=== PATIENT | male | born 1950 | race Caucasian/White ===

== ENCOUNTER 2019-09-07 10:06 | Emergency (ER) | payer MEDICARE ==
[2019-09-07 10:24] VITALS: BP 187/100
[2019-09-07] MEDS ORDERED: Ketorolac INJ* 30 MG/ML 1 ML VIAL IM ONE (10:57)
--- NOTE | 2019-09-07 10:58 | UC ---
Hip/Pelvis Pain - HPI Summary HPI Summary: 69-year-old male who complains of left hip/sciatica pain over the past month. He denies any specific injury however after viewing past events he was lifting wood and piling it approximately one month ago and then he was doing some "froglike jumps" with his grandson and shortly after that he started having some left hip pain which shoots down his left leg. It has gradually worsened over the past month. He denies any other injury. Denies any saddle anesthesia and no numbness or tingling in his extremities. When he sits it feels better and he has been sleeping sitting up in a chair. - History Of Current Complaint Chief Complaint: UCBackPain Stated Complaint: PAIN DOWN LEG Time Seen by Provider: 09/07/19 10:36 Hx Obtained From: Patient Onset/Duration: Gradual Onset, Lasting Weeks Timing: Constant Severity Initially: Mild Severity Currently: Moderate Pain Intensity: 7 Character Of Pain: Sharp, Dull, Aching Aggravating Factor(s): Movement Alleviating Factor(s): Rest, Position, Other - When he is sitting the pain is improved. Associated Signs And Symptoms: Positive: Negative - Allergies/Home Medications Allergies/Adverse Reactions: Allergies Allergy/AdvReac Type Severity Reaction Status Date / Time No Known Allergies Allergy Verified 09/07/19 10:15 Home Medications: Home Medications Acetaminophen TAB* [Tylenol TAB*] 650 mg PO Q4H PRN 09/07/19 [History Confirmed 09/07/19] PMH/Surg Hx/FS Hx/Imm Hx Previously Healthy: Yes Cardiovascular History: Other - History of PVCs - Surgical History Surgical History: Yes Surgery Procedure, Year, and Place: vasectomy, hernia repair, RIGHT SHOULDER RTC - Family History Known Family History: Positive: Non-Contributory - Social History Occupation: Retired Lives: With Family Alcohol Use: Daily Alcohol Amount: 1 beer/ night Substance Use Type: None Smoking Status (MU): Never Smoked Tobacco Type: Cigarettes When Did the Patient Quit Smoking/Using Tobacco: 25 years Review of Systems All Other Systems Reviewed And Are Negative: Yes Motor: Positive: Negative Neurovascular: Positive: Negative Musculoskeletal: Positive: Other: - No decreased range of motion however he does have worsening left buttock pain which radiates down his leg over the past month. Neurological: Negative: Headache, Weakness, Paresthesia, Numbness Psychological: Positive: Negative Is Patient Immunocompromised?: No Physical Exam Triage Information Reviewed: Yes Appearance: Well-Appearing, No Pain Distress, Well-Nourished Vital Signs: Initial Vital Signs Temp 98.9 F 09/07/19 10:17 Pulse 75 09/07/19 10:17 Resp 20 09/07/19 10:17 BP 187/100 09/07/19 10:17 Pulse Ox 97 09/07/19 10:17 Vital Signs Reviewed: Yes Respiratory: Positive: Lungs clear, Normal breath sounds, No respiratory distress, No accessory muscle use Cardiovascular: Positive: RRR, No Murmur, Pulses Normal, Brisk Capillary Refill Abdomen Description: Positive: Nontender, No Organomegaly, Soft. Negative: CVA Tenderness (R), CVA Tenderness (L), Distended, Guarding, Hepatomegaly, McBurney' s Point Tenderness, Pulsatile Mass, Splenomegaly Musculoskeletal: Positive: Strength Intact, ROM Intact, Other: - Good peripheral pulses, neuro sensation and capillary refill. Reflexes +2 on the right knee +1 left knee. Minimally positive left straight leg raise. Tenderness on palpation left buttock. Spine and right buttock nontender Neurological Exam: Normal Psychological Exam: Normal Skin Exam: Normal Hip Injury Course/Dx - Course Course Of Treatment: Left hip and pelvis x-ray:FINDINGS: The bones are in normal alignment. No fracture is seen. There is mild bilateral osteoarthritic change in the hips. There is also mild bilateral sacroiliitis. Postsurgical changes project over the inguinal regions and overlying the pelvis on the right side. IMPRESSION: 1. MILD BILATERAL OSTEOARTHRITIC CHANGE IN THE HIPS. 2. MILD BILATERAL SACROILIITIS. The patient was given Toradol 30 mg IM, I'm also giving him a prescription for Flexeril as well as Motrin. He is to avoid movements that cause pain. Definite referral to Dr. Cano for further back care. - Differential Dx/Diagnosis Provider Diagnosis: Left sided sciatica Discharge ED - Sign-Out/Discharge Documenting (check all that apply): Patient Departure All imaging exams completed and their final reports reviewed: Yes - Discharge Plan Condition: Fair Disposition: HOME Prescriptions: Cyclobenzaprine TAB* [Flexeril 10 MG TAB*] 10 mg PO TID PRN #15 tab PRN Reason: Pain - Mild Ibuprofen TAB* [Motrin TAB* 600 MG] 600 mg PO Q8H PRN #20 tab PRN Reason: Pain - Mild Patient Education Materials: Sciatica (ED) Referrals: Haim Olguin MD [Primary Care Provider] - Williams Cano MD [Medical Doctor] - Additional Instructions: Avoid movements that cause pain. No driving, operating machinery or drink alcohol while you're taking the muscle relaxant. Take the Motrin with food. Definite follow up with either your primary care provider or Dr. Cano for further care and evaluation. Go to the emergency room if you have any numbness in your legs, numbness in your groin area, urinary or bowel incontinence. - Billing Disposition and Condition Condition: FAIR Disposition: Home - Attestation Statements Provider Attestation: Per institutional requirements, I have reviewed the chart, however, I was not consulted specifically or made aware of this patient by the midlevel provider. I did not personally evaluate, interact with , or disposition this patient.
== END 2019-09-07 11:50 | disposition home or self-care (01) ==
LOC: UCEAST 10:06
DX: M54.32 Sciatica, left side (principal); M16.0 Bilateral primary osteoarthritis of hip; M46.1 Sacroiliitis, not elsewhere classified
CPT/HCPCS: 96372; 99212; G0463; J1885

== ENCOUNTER 2019-11-21 20:29 | Emergency (ER) | payer MEDICARE ==
--- NOTE | 2019-11-21 22:55 | ED ---
Back Pain - HPI Summary HPI Summary: This pt is a 69 Y/O M presenting to [facility] accompanied by his with a CC of low back pain that is radiated a 9/10 in severity and has been present since July 2019. He states that the pain has been worsening this past week and radiates down his legs, primarily on the L side. He states that he has decreased gait balance. He states that the pain has begun to radiate up into his chest about a month ago. The pain has also moved to in-between his shoulder blades. He has numbness and tingling in his bilateral lower extremities. He states that he has been unable to sleep in a bed due to the pain and SOB. He states that he has had this pain before but was feeling improvements. He has recently participated in psychical therapy that has been unhelpful. He states that he saw a chiropractor before this pain occurred. He states that he has increased pain with movements and resting for over 45 minutes. He denies any fevers, headaches, and N/V. He states that he has a PMHx of HTN and PVCs. - History of Current Complaint Chief Complaint: EDBackInjuryPain Stated Complaint: BACK PAIN PER PT Time Seen by Provider: 11/21/19 22:42 Hx Obtained From: Patient Onset/Duration: Sudden Onset, Still Present, Worse Since - last week, Other - since July 2019 Onset/Duration: Started Weeks Ago, Still Present, Worse Since - last week Timing: Constant Back Pain Location: Is Discrete @ - middle of back, inbetween shoulder blades Severity Initially: Moderate Severity Currently: Severe - 9 Pain Intensity: 9 Pain Scale Used: 0-10 Numeric Aggravating Symptom(s): Movement, Other - resting for 45 minutes Alleviating Symptom(s): Nothing Associated Signs And Symptoms: Positive: Negative - fevers, headaches, N/V, Weakness - bilateral lower extremities, Numbness - bilateral lower extremities, Other - POSITIVE: SOB, bilateral lower extremity pain, chest pain. Negative: Fever Related History: Previous Back Injury - states back injury and pain since July 2019 - Allergies/Home Medications Allergies/Adverse Reactions: Allergies Allergy/AdvReac Type Severity Reaction Status Date / Time No Known Allergies Allergy Verified 11/21/19 20:33 Home Medications: Home Medications Gabapentin 300 mg PO TID PRN 11/21/19 [History Confirmed 11/21/19] Methylprednisolone 4 mg PO DAILY 11/21/19 [History Confirmed 11/21/19] traMADol TAB* 50 mg PO Q6HR PRN 11/21/19 [History Confirmed 11/21/19] PMH/Surg Hx/FS Hx/Imm Hx Previously Healthy: Yes Endocrine/Hematology History: Denies: Hx Diabetes, Hx Thyroid Disease Cardiovascular History: Reports: Hx Hypertension Denies: Hx Pacemaker/ICD Respiratory History: Denies: Hx Asthma, Hx Chronic Obstructive Pulmonary Disease (COPD) GI History: Denies: Hx Ulcer History: Denies: Hx Renal Disease Musculoskeletal History: Denies: Hx Rheumatoid Arthritis, Hx Osteoporosis Sensory History: Denies: Hx Hearing Aid Psychiatric History: Denies: Hx Panic Disorder - Cancer History Hx Chemotherapy: No Hx Radiation Therapy: No - Surgical History Surgical History: Yes Surgery Procedure, Year, and Place: vasectomy, hernia repair, RIGHT SHOULDER RTC - Immunization History Immunizations Up to Date: Yes Infectious Disease History: No Infectious Disease History: Denies: Hx Hepatitis, Hx Human Immunodeficiency Virus (HIV), History Other Infectious Disease, Traveled Outside the [place] in Last 30 Days - Family History Known Family History: Negative: Hypertension, Diabetes - Social History Occupation: Retired Lives: With Family Alcohol Use: Daily Alcohol Amount: 1 beer/ night Hx Substance Use: Yes Substance Use Type: Reports: None Hx Tobacco Use: Yes Smoking Status (MU): Former Smoker Type: Cigarettes Review of Systems Negative: Fever Positive: Chest Pain Positive: Shortness Of Breath Negative: Vomiting, Nausea Positive: Other - back pain and lower extremity pain Neurological: Other - POSITIVE: bilateral lower extremitiy tingling Positive: Weakness - bilateral lower extremitiy . Negative: Headache All Other Systems Reviewed And Are Negative: Yes Physical Exam - Summary Physical Exam Summary: Appearance: Well-appearing, Well-nourished, lying in bed comfortably Skin: Warm, dry, no obvious rash Eyes: sclera anicteric, no conjunctival pallor ENT: mucous membranes moist, pharynx appears normal Neck: Supple, nontender, no bruits Respiratory: Clear to auscultation, no signs of respiratory distress Cardiovascular: Normal S1, S2. No murmurs. Normal distal pulses in tibial and radial bilaterally. Abdomen: Soft, nontender, normal active bowel sounds present Musculoskeletal: Normal, Strength/ROM Intact. No obvious deformities of back Neurological: A&Ox3, awake and alert, mentation is normal, speech is fluent and appropriate, Subjective decrease of light touch in feet, no clonus or hyperreflexia, No Bulbar signs, no fine motor ataxia, normal finger to nose and beckett testing, unstable on feet to the point a Romberg is not obtainable. Psychiatric: affect is normal, does not appear anxious or depressed Triage Information Reviewed: Yes Vital Signs On Initial Exam: Initial Vitals Temp Pulse Resp BP Pulse Ox 97.5 F 92 15 186/106 95 11/21/19 20:31 11/21/19 20:31 11/21/19 20:31 11/21/19 20:31 11/21/19 20:31 Vital Signs Reviewed: Yes Procedures - Sedation Patient Received Moderate/Deep Sedation with Procedure: No Diagnostics - Vital Signs Vital Signs Temp Pulse Resp BP Pulse Ox 11/21/19 20:31 97.5 F 92 15 186/106 95 - Laboratory Result Diagrams: 11/21/19 23:08 11/21/19 23:08 Lab Statement: Any lab studies that have been ordered have been reviewed, and results considered in the medical decision making process. - CT CTA chest CT Interpretation Completed By: Radiologist Summary of CT Findings: 1. Small volume pulmonary emboli left upper lobe. No right heart strain. 2. 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 No aortic dissection. 3. 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 4. Bosniak type I renal cysts. No follow up indicated. ED physician has reviewed this report. Head CTA CT Interpretation Completed By: Radiologist Summary of CT Findings: Mildly atherosclerotic and minimally stenotic right internal carotid artery. Otherwise normal head CTA. ED physician has reviewed this report. - EKG 2322 Cardiac Rate: NL - 76 BPM EKG Rhythm: Sinus Rhythm ST Segment: Normal Ectopy: None Summary of EKG Findings: NSR at 76 BPM, P waves, QRS complex, and T waves are within normal limits, T waves and intervals are normal, no ischemic changes. This is a normal EKG. Interpreted by Dr. Murray at 8460 11/21/2019 Back Pain Course/Dx - Course Course Of Treatment: This pt is a 69 Y/O M presenting to [facility] accompanied by his with a CC of low back pain that is radiated a 9/10 in severity and has been present since July 2019. He states that the pain has been worsening this past week and radiates down his legs, primarily on the L side. He states that he has decreased gait balance. He states that the pain has begun to radiate up into his chest about a month ago. The pain has also moved to in- between his shoulder blades. He has numbness and tingling in his bilateral lower extremities. He has a PMHx of HTN and occasional PVCs. His PE found Subjective decrease of light touch in feet, no clonus or hyperreflexia, No Bulbar signs, no fine motor ataxia, normal finger to nose and beckett testing, unstable on feet to the point a Romberg is not obtainable. He has no bruits noted and no obvious deformities of his back. EKG at 2322 shows NSR at 76 BPM, P waves, QRS complex, and T waves are within normal limits, T waves and intervals are normal, no ischemic changes. This is a normal EKG. His D-Dimer is a 497 and he will receive a chest CTA. His CTA Chest shows the followin. Small volume pulmonary emboli left upper lobe. No right heart strain. 2. 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 No aortic dissection. 3. 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 4. Bosniak type I renal cysts. No follow up indicated. His Head CTA shows the following: Mildly atherosclerotic and minimally stenotic right internal carotid artery. Otherwise normal head CTA. He will be admitted for further care by Dr. Qureshi, hospitalist, at 0054 to [facility] for further care with a Dx of a Pulmonary embolism and Thoracic spine tumor. On evaluation by the hospitalist, the patient was noted to have decreased sensation in the legs and abnormal reflexes, and there was a suspicion for cord compression. MRI obtained emergently overnight confirmed the clinical suspicion. Neurosurgery was consulted but it was felt the patient was too medically complex to be treated surgically here, so hospitalist team arranged transfer to a tertiary care facility. - Diagnoses Provider Diagnoses: Pulmonary embolism, Thoracic spine tumor - Provider Notifications Discussed Care Of Patient With: Nereyda Qureshi Time Discussed With Above Provider: 00:54 Instructed by Provider To: Admit As Inpatient Admit/Transition Orders Completed By ED Provider: Yes Discharge ED - Sign-Out/Discharge Documenting (check all that apply): Patient Departure - Discharge Plan Condition: Stable Disposition: TRANS HIGHER LVL OF CARE FAC Referrals: Haim Olguin MD [Primary Care Provider] - - Billing Disposition and Condition Condition: STABLE Disposition: Trans Higher Lvl of Care Fac - Attestation Statements Document Initiated by Bello: Yes Documenting Scribe: Luis Angel Grimaldo Provider For Whom Bello is Documenting (Include Credential): Luis Murray MD Scribe Attestation: Luis Angel Steen, hildaibed for Luis Murray MD on 11/23/19 at 0529. Scribe Documentation Reviewed: Yes Provider Attestation: The documentation as recorded by the Luis Angel cedeno accurately reflects the service I personally performed and the decisions made by me, Luis Murray MD Status of Scribe Document: Viewed
[2019-11-21 23:19] LABS: ABS Eosinophils 0.1 10^3/ul (0-0.6); ABS Lymphocytes 1.3 10^3/ul (1.0-4.8); ABS Monocytes 0.6 10^3/ul (0-0.8); ABS Neutrophils 7.4 10^3/ul (1.5-7.7); Eosinophil % 0.6 %; Hematocrit 40 % (42-52); Hemoglobin 13.3 g/dL (14.0-18.0); Lymphocyte % 13.5 %; Mean Corpuscular HGB Conc 33 g/dL (31-36); Mean Corpuscular Hemoglobin 31 pg (27-31); Mean Corpuscular Volume 94 fL (80-94); Mean Platelet Volume 8.4 fL (7.4-10.4); Nucleated Red Blood Cells % 0.1; Platelet Count 257 10^3/uL (150-450); Red Blood Count 4.25 10^6 /uL (4.18-5.48); Red Cell Distribution Width 15 % (10-15); White Blood Count 9.5 10^3/uL (3.5-10.8)
[2019-11-21 23:36] LABS: ALT 26 U/L (7-52); AST 20 U/L (13-39); Albumin 4.3 g/dL (3.2-5.2); Albumin/Globulin Ratio 1.3 (1-3); Alkaline Phosphatase 98 U/L (34-104); Anion Gap 7 mmol/L (2-11); BUN/Creatinine Ratio 23.2 (8-20); Blood Urea Nitrogen 19 mg/dL (6-24); C Reactive Protein < 1.00 mg/L (<8.01); CO2 Carbon Dioxide 27 mmol/L (22-32); Calcium 9.7 mg/dL (8.6-10.3); Chloride 101 mmol/L (101-111); EGFR African American 112.7 (>60); EGFR Non-African American 93.2 (>60); Globulin 3.3 g/dL (2-4); Glucose 124 mg/dL (70-100); Sodium 135 mmol/L (135-145); Total Protein 7.6 g/dL (6.4-8.9)
[2019-11-21 23:38] LABS: Troponin I 0.02 ng/mL (<0.03)
[2019-11-21] MEDS ORDERED: Iohexol 350* (CONTRAST) 500 ML MDV IV ONE (23:44)
[2019-11-22 00:53] LABS: Erythrocyte Sed Rate 52 mm/Hr (0-19)
[2019-11-22] MEDS ORDERED: oxyCODONE TAB* 5 MG TAB PO ONE (00:58)
[2019-11-22] MEDS ORDERED: oxyCODONE TAB* 5 MG TAB PO PRN (02:07)
[2019-11-22] MEDS ORDERED: Morphine INJ* 4 MG/ML 1 ML SYRINGE (NEW SYRINGE VERSION) IV PRN (02:07)
[2019-11-22] MEDS ORDERED: Diazepam TAB(*) 5 MG PO PRN (02:07)
[2019-11-22] MEDS ORDERED: Acetaminophen TAB* 325 MG PO PRN (02:12)
[2019-11-22] MEDS ORDERED: Ondansetron INJ* 2 MG/ML VIAL IV PRN (02:19)
[2019-11-22] MEDS ORDERED: Ropinirole TAB* 0.5 MG TAB PO ONE (02:20)
[2019-11-22] MEDS ORDERED: hydrALAZINE IV* 20 MG/ML VIAL IV SLOW PU PRN (02:22)
[2019-11-22 02:46] LABS: % Iron Saturation 11 % (15-55); Iron 49 ug/dL (50-212); Total Iron Binding Capacity 461 mcg/dL (250-450); Transferrin 329 mg/dL (203-362)
[2019-11-22] MEDS ORDERED: Enoxaparin(*) 80 MG/0.8 ML SYR SUBCUT SCH ×2 (03:00)
[2019-11-22 03:07] LABS: Ferritin 11.5 ng/mL (24-336)
[2019-11-22] MEDS ORDERED: Gadoteridol* (CONTRAST) 279.3 MG/ML 10 ML IV ONE (05:42)
[2019-11-22] MEDS ORDERED: Dexamethasone IV* 4 MG/ML 1 ML (4 MG) PO ONE (06:47)
--- NOTE | 2019-11-22 08:05 | PN ---
Progress Note - Progress Note Date of Service: 11/22/19 Note: I just spoke to Dr. Morejon who believes the patient will need surgery in the next 2-3 days but he does not think this is the correct place to operate. I spoke with neurosurgery at [facility] who did not want to accept the patient now as they felt the patient needs a metastatic work up first. For the PE, Dr. Morejon has recommended IVC filter as opposed to heparin drip due to him having epidural disease.
--- NOTE | 2019-11-22 08:37 | PN ---
Subjective - Subjective Reason for Note: Progress Note History: Transfer summary derrick Medina 69 I have obtained a history from Derrick and Ester Medina. I have also reviewed the electronic medical record. He had an episode of left sided sciatica starting in July 2019. This was resolving. He developed thoracic pain and called me on 11/16/2019 - this was musculo- skeletal and had started around 5 days before. I prescribed a medrol dosage jennifer and cyclobenzaprine. This worsened when he had chiropractice manipulation. 2 days ago he started having numbness on abdomen that descended into his legs. He also developed progressive weakness in his legs. He has had 2 day with difficulty urinating. He has had no bowel symptoms. The pain is in his lower back, across chest and in shoulders. 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 (Acute) C79.51 Pathological fracture of lumbar vertebra (Acute) M84.48XA Pathological fracture of thoracic vertebra (Acute) M84.48XA Pulmonary embolism (Acute) I26.99 Urinary retention (Acute) R33.9 Current Medications: Current Medications Acetaminophen (Tylenol Tab*) 650 mg PO Q4H PRN PRN Reason: MILD PAIN or TEMP > 100.4 Diazepam (Valium Tab(*)) 2.5 mg PO Q8H PRN PRN Reason: spasms Gabapentin (Neurontin Cap(*)) 300 mg PO TID ERICK Hydralazine HCl (Apresoline Iv*) 5 mg IV SLOW PU Q6H PRN PRN Reason: SBP> 170 Morphine Sulfate (Morphine Inj (Syringe)*) 4 mg IV Q4H PRN PRN Reason: PAIN - SEVERE Ondansetron HCl (Zofran Inj*) 4 mg IV Q6H PRN PRN Reason: NAUSEA Oxycodone HCl (Roxycodone Tab*) 5 mg PO Q4H PRN PRN Reason: PAIN - MODERATE Ropinirole HCl (Requip Tab*) 0.5 mg PO BEDTIME ERICK Home Medications: Home Medications Medication Instructions Recorded Confirmed Type Acetaminophen TAB* [Tylenol TAB*] 650 mg PO Q4H PRN 09/07/19 11/21/19 History Ibuprofen TAB* [Motrin TAB* 600 MG] 600 mg PO Q8H PRN #20 tab 09/07/19 11/21/19 Rx Gabapentin 300 mg PO TID PRN 11/21/19 11/21/19 History Methylprednisolone 4 mg PO DAILY 11/21/19 11/21/19 History traMADol TAB* 50 mg PO Q6HR PRN 11/21/19 11/21/19 History Allergies: Allergies Allergy/AdvReac Type Severity Reaction Status Date / Time No Known Allergies Allergy Verified 11/21/19 20:33 Objective - Vital Signs Vital Signs: Vital Signs 11/21/19 11/21/19 11/21/19 20:31 22:34 22:35 Temperature 97.5 F Pulse Rate 92 75 76 Respiratory 15 Rate Blood Pressure 186/106 202/110 (mmHg) O2 Sat by Pulse 95 93 94 Oximetry 11/21/19 11/21/19 11/21/19 23:28 23:32 23:34 Temperature Pulse Rate 87 88 87 Respiratory 17 18 Rate Blood Pressure 188/116 182/97 (mmHg) O2 Sat by Pulse 94 93 94 Oximetry 11/22/19 11/22/19 11/22/19 00:05 00:06 00:34 Temperature Pulse Rate 84 86 96 Respiratory 14 19 20 Rate Blood Pressure 191/119 184/111 (mmHg) O2 Sat by Pulse 90 90 94 Oximetry 11/22/19 11/22/19 11/22/19 01:00 01:05 01:48 Temperature Pulse Rate 89 92 Respiratory 17 18 Rate Blood Pressure 187/114 168/120 (mmHg) O2 Sat by Pulse 94 95 Oximetry 11/22/19 11/22/19 11/22/19 01:55 02:04 02:06 Temperature Pulse Rate 90 90 Respiratory Rate Blood Pressure 176/110 153/101 (mmHg) O2 Sat by Pulse 92 95 Oximetry 11/22/19 11/22/19 11/22/19 02:35 03:04 03:17 Temperature Pulse Rate 87 Respiratory Rate Blood Pressure 170/103 161/104 (mmHg) O2 Sat by Pulse 94 Oximetry 11/22/19 11/22/19 11/22/19 03:34 04:00 04:04 Temperature Pulse Rate 97 Respiratory 22 21 19 Rate Blood Pressure 152/114 150/107 (mmHg) O2 Sat by Pulse 94 Oximetry 11/22/19 11/22/19 11/22/19 05:52 06:00 06:04 Temperature Pulse Rate 97 89 96 Respiratory 13 20 Rate Blood Pressure 132/90 162/105 (mmHg) O2 Sat by Pulse 84 93 93 Oximetry 11/22/19 11/22/19 11/22/19 07:00 07:04 07:05 Temperature Pulse Rate 107 108 104 Respiratory 22 33 17 Rate Blood Pressure 159/107 145/99 (mmHg) O2 Sat by Pulse 96 96 96 Oximetry 11/22/19 11/22/19 11/22/19 07:35 08:00 08:05 Temperature Pulse Rate 104 Respiratory 23 26 29 Rate Blood Pressure 166/94 157/83 (mmHg) O2 Sat by Pulse 95 Oximetry - Intake and Output Intake and Output: Intake & Output 11/19/19 11/20/19 11/21/19 11/22/19 11:59 11:59 11:59 11:59 Weight 175 lb ADLs: Meal Record Start: 11/22/19 03: 49 Freq: DAILY@0900,1400,1800 Status: Active Protocol: Created 11/22/19 03:49 System (Rec: 11/22/19 03:49 System [email or web address]) Intake and Output Start: 11/21/19 20: 34 Freq: Status: Active Protocol: Created 11/21/19 20:34 System (Rec: 11/21/19 20:34 System [id number]) Intake and Output Start: 11/22/19 03: 49 Freq: DAILY@0600,1400,2200 Status: Active Protocol: Created 11/22/19 03:49 System (Rec: 11/22/19 03:49 System [email or web address]) - Physical Exam General Physical Exam Comment: He has a tachycardia and is dyspneic. For detailed evaluation of neurological function - see Dr. Steiner's contemperaneous neurological consultation. General: No Cyanosis, No Anemia, No Jaundice, No Clubbing Lungs and Chest: Yes: Chest Expansion Symetrica, Percussion Note Resonant, Vessicular Breath Sounds. No: Chest Expansion Full - limited by pain, Crackles , Wheezes Heart Rate and Rhythm: Regular JVP: Elevated Additional Cardiovascular: Yes: Normal Heart Sounds. No: Heart Murmur, Pedal Edema Abdominal Exam: Yes: Distention, Soft, Bowel Sounds Present. No: Rigidity, Abdominal Mass, Abdominal Tenderness - Extremities Cranial Nerves II-XII Intact: Yes Limbs: Abnormal Power - legs 3+ - Neuro Orientation: A/O x3 Psychiatric: Anxious Speech: Normal Results - Results Lab Results: Laboratory Results - last 24 hr 11/21/19 11/21/19 11/21/19 23:08 23:08 23:08 WBC 9.5 RBC 4.25 Hgb 13.3 L Hct 40 L MCV 94 MCH 31 MCHC 33 RDW 15 Plt Count 257 MPV 8.4 Neut % (Auto) 78.7 Lymph % (Auto) 13.5 [place]uba % (Auto) 6.7 Eos % (Auto) 0.6 Baso % (Auto) 0.5 Absolute Neuts (auto) 7.4 Absolute Lymphs (auto) 1.3 Absolute Monos (auto) 0.6 Absolute Eos (auto) 0.1 Absolute Basos (auto) 0.0 Absolute Nucleated RBC 0.0 Nucleated RBC % 0.1 ESR 52 H D-Dimer, Quantitative Sodium 135 Potassium 4.0 Chloride 101 Carbon Dioxide 27 Anion Gap 7 BUN 19 Creatinine 0.82 Est GFR ( Amer) 112.7 Est GFR (Non-Af Amer) 93.2 BUN/Creatinine Ratio 23.2 H Glucose 124 H Lactic Acid 1.1 Calcium 9.7 Iron 49 L TIBC 461 H % Saturation 11 L Unsat Iron Binding < 446 Transferrin 329 Ferritin 11.5 L Total Bilirubin 0.40 AST 20 ALT 26 Alkaline Phosphatase 98 Troponin I 0.02 C-Reactive Protein < 1.00 Total Protein 7.6 Albumin 4.3 Globulin 3.3 Albumin/Globulin Ratio 1.3 Vitamin B12 236 11/21/19 11/22/19 23:08 06:38 WBC RBC Hgb Hct MCV MCH MCHC RDW Plt Count MPV Neut % (Auto) Lymph % (Auto) Yuba % (Auto) Eos % (Auto) Baso % (Auto) Absolute Neuts (auto) Absolute Lymphs (auto) Absolute Monos (auto) Absolute Eos (auto) Absolute Basos (auto) Absolute Nucleated RBC Nucleated RBC % ESR D-Dimer, Quantitative 497 H Sodium Potassium Chloride Carbon Dioxide Anion Gap BUN Creatinine Est GFR ( Amer) Est GFR (Non-Af Amer) BUN/Creatinine Ratio Glucose Lactic Acid Calcium Iron TIBC % Saturation Unsat Iron Binding Transferrin Ferritin Total Bilirubin AST ALT Alkaline Phosphatase Troponin I 0.01 C-Reactive Protein Total Protein Albumin Globulin Albumin/Globulin Ratio Vitamin B12 Radiology Results: Patient Name: DERRICK MEDINA Medical Record#: [id number] Ordering Physician: Derrick Murray MD Acct.#: [id number] : 1950 Age: 69 Sex: M Location: EMERGENCY DEPARTMENT Exam Date: 11/21/192256 ADM Status: REG ER Order Information: CTA CHEST Accession Number: [id number] CPT: 84810 ADDENDUM Addendum created by Perla Agee MD on 11/22/2019 12:48:44 AM EST THIS REPORT CONTAINS FINDINGS THAT MAY BE CRITICAL TO PATIENT CARE. The findings were verbally communicated via telephone conference with DERRICK MURRAY at 12:47 AM EST on 11/22/2019. The findings were acknowledged and understood. Initial report created on 11/22/2019 12:45:54 AM EST PROCEDURE INFORMATION: Exam: CT Angiography Chest With Contrast Exam date and time: 11/22/2019 12:00 AM Age: 69 years old Clinical indication: Chest pain; Additional info: Chest/thoracic pain, ? dissection TECHNIQUE: Imaging protocol: Computed tomographic angiography of the chest with intravenous contrast. 3D rendering: MIP and/or 3D reconstructed images were created by the technologist. Radiation optimization: All CT scans at this facility use at least one of these dose optimization techniques: automated exposure control; mA and/or kV adjustment per patient size (includes targeted exams where dose is matched to clinical indication); or iterative reconstruction. Contrast material: OMNI 350; Contrast volume: 80 ml; Contrast route: IV; COMPARISON: No relevant prior studies available. FINDINGS: Pulmonary arteries: Pulmonary arteries are well-opacified to the subsegmental branches. Acute filling defects segmental and subsegmental branches anterior segment left upper lobe (series 2, image 51). No additional pulmonary artery filling defects. Main pulmonary artery is normal in caliber. Aorta: Ectatic ascending thoracic aorta measuring up to 4.2 cm. No stranding or hematoma.The aorta demonstrates mild atherosclerotic calcification. No dissection or aneurysm. Thyroid: No thyroid nodules. Lungs: Subsegmental atelectasis posterior basal segments bilateral lower lobes. No pulmonary nodules, masses, or consolidations. No bronchiectasis, peribronchial thickening, or luminal defects. Pleural space: Normal. No pneumothorax. No pleural effusion. Heart: RV/LV = 0.8 (nl <0.9). No pericardial effusion. There is mild atherosclerotic calcification of the coronary arteries. Liver: Multiple fluid attenuating hepatic foci largest in segment II measures 1.6 cm. Kidneys and ureters: Fluid attenuating left renal foci largest which is This report is only to be considered final once signed by the Provider(s) as displayed in the "<Electronically Signed by >" field (s). Absence of a [facility] Patient Name:DERRICK MEDINA MR: [id number] : 1950 pericolic measuring 4.3 cm. Lymph nodes: Normal. No enlarged lymph nodes. Bones/joints: Several scattered lytic lesions within the upper thoracic spine including vertebral plana of the T2 vertebral body. No additional pathologic fractures. Soft tissues: Normal. IMPRESSION: 1. Small volume pulmonary emboli left upper lobe. No right heart strain. 2. 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 No aortic dissection. 3. 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 4. Bosniak type I renal cysts. No followup indicated. Dictated and Authenticated by: Perla Agee MD 11/22/2019 12:48 AM Eastern Time ([place] and Unique) Patient Name: DERRICK MEDINA Medical Record#: [id number] Ordering Physician: Derrick Murray MD Acct.#: [id number] : 1950 Age: 69 Sex: M Location: EMERGENCY DEPARTMENT Exam Date: 11/21/192256 ADM Status: REG ER Order Information: CTA HEAD/NECK Accession Number: [id number] CPT: 85584 PROCEDURE INFORMATION: Exam: CT Angiography Head With Contrast Exam date and time: 11/21/2019 11:53 PM Age: 69 years old Clinical indication: Other: Back and neck pain; Additional info: Back/neck pain, ataxia, ? dissection TECHNIQUE: Imaging protocol: Computed tomography angiography of the head with intravenous contrast. 3D rendering: MIP and/or 3D reconstructed images were created by the technologist. Radiation optimization: All CT scans at this facility use at least one of these dose optimization techniques: automated exposure control; mA and/or kV adjustment per patient size (includes targeted exams where dose is matched to clinical indication); or iterative reconstruction. Contrast material: OMNI 350; Contrast volume: 85 ml; Contrast route: IV; COMPARISON: No relevant prior studies available. FINDINGS: Right internal carotid artery: Mildly atherosclerotic right internal carotid artery in the cavernous segment causing minimal stenosis. No dissection or aneurysm. Right anterior cerebral artery: Normal. No occlusion or stenosis. No aneurysm. Right middle cerebral artery: Normal. No occlusion or stenosis. No aneurysm. Right posterior cerebral artery: Normal. No occlusion or stenosis. No aneurysm. Right vertebral artery: Normal. No occlusion or stenosis. No aneurysm. Left internal carotid artery: Normal. Intracranial segment is patent with no stenosis. No aneurysm. Left anterior cerebral artery: Normal. No occlusion or stenosis. No aneurysm. Left middle cerebral artery: Normal. No occlusion or stenosis. No aneurysm. Left posterior cerebral artery: Normal. No occlusion or stenosis. No aneurysm. Left vertebral artery: Normal. No occlusion or stenosis. No aneurysm. Basilar artery: Normal. No occlusion or stenosis. No aneurysm. HEAD: Brain: No abnormal brain enhancement. IMPRESSION: Mildly atherosclerotic and minimally stenotic right internal carotid artery. Otherwise normal head CTA. COMMENT: See concurrently obtained neck CTA for further details. [facility] Patient Name:DERRICK MEDINA MR: [id number] : 1950 To contact [facility] with a general question: [facility] - [phone] For direct physician to physician contact: Physician Hotline - [phone] [facility] ([facility] Facility ID #[id number]) <Electronically signed by Perla Agee MD in OV> 11/22/19 0059 Dictated By: Perla Agee MD Dictated Date/Time: 11/21/192352 Transcribed Date/Time: 11/21/192352 Copy to: CC:Haim Olguin MD; Derrick Murray MD Imaging - [facility] Imaging - [place] [facility] Imaging - [facility] [address] [address] ph ([phone]) ph ([phone]) ph ([phone]) Patient Name: DERRICK MEDINA Medical Record#: [id number] Ordering Physician: Aston Amato DETAIL SERGEANT Acct.#: [id number] : 1950 Age: 69 Sex: M Location: [address] [place] [address] MEDICAL/TELEMETRY Exam Date: 11/22/19301 ADM Status: ADM Gwendolyn Order Information: MRI LUMBAR SPINE W/WO Accession Number: [id number] CPT: 13423 PROCEDURE INFORMATION: Exam: MR Lumbar Spine Without and With Contrast. Exam date and time: 11/22/2019 4:41 AM Age: 69 years old Clinical indication: Pain and abnormal findings; Abnormal xray or scan of thoracolumbar spine; [place] and low back pain and sciatica; Patient HX: Back pain, leg pain, progressively worsening leg weakness over last 2 days; Additional info: Back pain weakness, TECHNIQUE: Imaging protocol: Multiplanar magnetic resonance images of the lumbar spine without and with intravenous contrast. Contrast material: PROHANCE; Contrast volume: 16 ml; Contrast route: IV; COMPARISON: No relevant prior studies available. FINDINGS: Vertebrae: Tumor infiltration with pathologic compression fracture of L4. Tumor extends to the left L4 pedicle. Metastatic lesion along the right aspect of L5 vertebra extending to the right pedicle. Metastatic lesion involving left aspect of S1 vertebral body. Spinal cord: Conus at L1. L1-L2: Disc desiccation changes. No significant spinal canal stenosis. No neural foraminal stenosis. L2-L3: Disc desiccation changes with a left paracentral disc bulge. No significant spinal canal stenosis. Mild left neural foraminal stenosis. Six L3-L4: Stenosis of the left L3-L4 neural foramen L4-L5: Disc desiccation changes. There is severe stenosis of the spinal canal with clumping of the cauda equina due to retropulsion of the fracture fragment and direct tumor extension at L4. Stenosis of the bilateral L4-L5 neural foramina. L5-S1: Disc desiccation changes. Loss of intervertebral disc height. Stenosis of the spinal canal due to tumor extension along the epidural space. Bilateral neural foraminal stenosis. Soft tissues: Left renal cysts. IMPRESSION: 1. Tumor infiltration with pathologic compression fracture of L4. Tumor extends to the left L4 pedicle. There is severe stenosis of the spinal canal due to retropulsion of the fracture fragment and direct tumor extension with clumping of the cauda equina. Stenosis of the bilateral L4-L5 neural foramina. 2. Metastatic lesion along the right aspect of L5 vertebra extending to the right pedicle. 3. Metastatic lesion involving left aspect of S1 vertebral body. Dictated and Authenticated by: Jerrell Stevenson MD 11/22/2019 6:49 AM Eastern Time ([place] and Unique) Patient Name: DERRICK MEDINA Medical Record#: [id number] Ordering Physician: Aston mAato DETAIL SERGEANT Acct.#: [id number] : 1950 Age: 69 Sex: M Location: [address] [place] [address]/TELEMETRY Exam Date: 11/22/19301 ADM Status: ADM Gwendolyn Order Information: MRI THORACIC SPINE W/WO Accession Number: [id number] CPT: 67263 ADDENDUM Addendum created by Jerrell Stevenson MD on 11/22/2019 7:12:26 AM EST Findings discussed with Dr Castro at 7:11 a.m. on 11/22/2019 Initial report created on 11/22/2019 7:03:20 AM EST PROCEDURE INFORMATION: Exam: MR Thoracic Spine Without and With Contrast Exam date and time: 11/22/2019 5:11 AM Age: 69 years old Clinical indication: Pain and abnormal findings; Abnormal radiologic findings of thoracic; Pain in thoracic spine; With radiculopathy; Bilateral; Patient HX: Back pain, bilat leg pain, progressively worsening leg weakness over last 2 days; Additional info: Back pain, weakness, TECHNIQUE: Imaging protocol: Multiplanar magnetic resonance images of the thoracic spine without and with intravenous contrast. Contrast material: PROHANCE; Contrast volume: 16 ml; Contrast route: IV; COMPARISON: OT TSP THORACIC SPINE 2 VWS 11/21/2019 12:01 PM FINDINGS: Vertebrae: Pathologic compression fracture of T2 with severe stenosis of the spinal canal and cord compression due to combination of retropulsion of the fracture fragment and direct tumor extension. Severe stenosis of the bilateral neural foramina at T1-2 and T2-3. Metastatic lesions are present at T3, T6, T8, T10, and T12. T1-T2: See above. T2-T3: See above. T3-T4: Disc desiccation changes. No significant spinal canal stenosis. T4-T5: Disc desiccation changes. No significant spinal canal stenosis. T5-T6: Disc desiccation changes. No significant spinal canal stenosis. T6-T7: Disc desiccation changes. No significant spinal canal stenosis. T7-T8: Disc desiccation changes. No significant spinal canal stenosis. T8-T9: Disc desiccation changes. No significant spinal canal stenosis. T9-T10: Disc desiccation changes. No significant spinal canal stenosis. T10-T11: Disc desiccation changes. No significant spinal canal stenosis. T11-T12: Disc desiccation changes. No significant spinal canal stenosis. Other bones/joints: Incidental note is made of a metastatic lesion involving right posterior 9th rib. Liver: T2 bright lesion in the liver dome. Soft tissues: Unremarkable. IMPRESSION: Pathologic compression fracture of T2 with severe stenosis of the spinal canal and cord compression due to combination of retropulsion of the fracture [facility] Patient Name:DERRICK MEDINA MR: [id number] : 1950 Dictated and Authenticated by: Jerrell Stevenson MD 11/22/2019 7:03 AM Eastern Time (US and Unique) EKG Report: Sinus rhythm Rate 94 VA 149 QTc 446 QRS 12 LVH Assessment - Problem List Assessment: Patient Problems Left sided sciatica (Acute) Loss of sensation (Acute) Metastatic cancer to spine (Acute) Pathological fracture of lumbar vertebra (Acute) Pathological fracture of thoracic vertebra (Acute) Pulmonary embolism (Acute) Urinary retention (Acute) Plan: Metastatic cancer to spine (Acute) Pathological fracture of lumbar vertebra ( Acute) Loss of sensation (Acute) Pathological fracture of thoracic vertebra ( Acute) He has pathological fractures T4 and L2. I have spoken to Dr. Steiner for neurology - he has a T2 sensory level. He requires urgent multilevel neurosurgical decompression of his spine. He has been accepted by Dr. Reji Back at [facility] and we will transfer him on an emergency basis as soon as a bed has been located. Urinary retention (Acute) this is due his spinal cord lesion Pulmonary embolism (Acute) Risk stratification - his D-dimer is less than 2 x upper limit of normal. This is a relatively small pulmonary embolism. There is concern about risks to the epidural lesion of hemorrhage. It is not in the main pulmonary artery - it is in a segmental artery. I think we can be more conservative during transfer and a decision can be made at [facility] whether he requires a filter or if the risk of anticoagulation is less than the benefits. Left sided sciatica (Acute) This is more jail I spoke to Derrick, Ester Medina and their son. They agree with this management plan.
[2019-11-22] MEDS ORDERED: Gabapentin CAP(*) 300 MG PO SCH (09:00)
--- NOTE | 2019-11-22 10:13 | HP ---
CC: Dr. Olguin HISTORY AND PHYSICAL: DATE OF ADMISSION: 11/22/19 PRIMARY CARE PROVIDER: Dr. Olguin. CHIEF COMPLAINT: Back pain and paresthesias of the legs. HISTORY OF PRESENT ILLNESS: Mr. Lancaster is a 69-year-old healthy male who states that in July of 2019 he was dealing with significant sciatica pain. He treated this with steroids, pain medications, and physical therapy and ultimately got mostly better. He, however, slowly started developing disco mfort in his upper back. He noted cramps on the left anterior chest wall and across his shoulders an d the back. He develops pain in that location. He also developed shooting pain down both legs, numb ness in both legs and in a band-like fashion across his lower trunk. He perceived lower extremity wea kness. He feels off balance. He states that he cannot feel the floor underneath his feet. He also has noted that he has uncontrollable twitching/jerking of his legs. The patient went to a chiropract or approximately 1 week ago and had manipulation done to his upper back. He states that when that oc curred, he nearly passed out due to severe pain. Over the last 1 week, he went from being able to wa lk a decent distance to now needing significant support. PAST MEDICAL HISTORY: None. PAST SURGICAL HISTORY: 1. Right rotator cuff repair. 2. Bone spur removal from the right shoulder. 3. Hernia repair. 4. Vasectomy. MEDICATIONS: 1. Methylprednisolone 4 mg p.o. daily. 2. Tramadol 50 mg p.o. q.6 hours p.r.n. pain. 3. Gabapentin 300 mg p.o. t.i.d. p.r.n. pain. 4. Ibuprofen 600 mg p.o. q.8 hours p.r.n. pain. 5. Tylenol 650 mg p.o. q.4 hours p.r.n. pain. ALLERGIES: No known drug allergies. FAMILY HISTORY: Mom at the age of 98 of old age. Dad at the age of 54 after his second [place] . The patient had a brother, who had a PE and of an WA. SOCIAL HISTORY: The patient is a former smoker, he quit in 1996. He admits to drinking 2 alcoholic beverages daily. 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 He is . His is his healthcare proxy. REVIEW OF SYSTEMS: The patient denies any fevers or chills. He states his appetite has been poor ov er the last couple of days. He denies any weight loss. He admits to left anterior chest wall cramps. He notes it is worse with movement and worse with deep breath. No edema of the legs. No cough. N o shortness of breath. He has had intermittent nausea. No abdominal pain. He has been constipated. No hematochezia. No hematuria. No dysuria. Neurologic: Complaints are as above. No sudden robles ges in vision. No dysphagia. There are no rashes. He does admit to anxiety surrounding the current events. PHYSICAL EXAMINATION GENERAL: The patient is a well-developed middle-aged male, seen sitting in upright in the stretcher, in no acute distress. VITAL SIGNS: Blood pressure 152/114, pulse 93, respirations 22, temp 97.5, O2 sat 94% on room air. HEENT: Pupils are equal. Extraocular muscles are intact. Oropharynx is clear, moist. There is no submandibular, cervical, or supraclavicular adenopathy. PULMONARY: Lungs are clear with minimal crackles on the right base. CARDIAC: Normal S1, S2. Regular rate and rhythm. I do not appreciate any murmurs. There is no low er extremity edema. ABDOMEN: Bowel sounds present. Abdomen is soft, nontender, nondistended. MUSCULOSKELETAL: The patient moves all 4 extremities symmetrically. NEUROLOGIC: Upper extremity strength is normal and symmetric bilaterally. Lower extremity strength is symmetric. He has good distal strength bilaterally. He is able to lift both legs up off the bed individually. He does complain of pain in his back when he does so. He has involuntary what appears to be myoclonic jerking of the left greater than right lower extremity. The patient has decreased t o absent sensation to vibration bilaterally. Reflexes are difficult to elicit. PSYCH: The patient is alert. He is oriented x3. Affect appears appropriate. SKIN: There are no rashes. DIAGNOSTIC STUDIES/LAB DATA: WBC 9.5, hemoglobin 13.3, hematocrit 40, platelets 257. ESR 52. D-di michaela 497. Sodium 135, potassium 4.0, chloride 101, CO2 of 27, BUN 19, creatinine 0.82, glucose 124, l actic acid 1.1, calcium 9.7. Iron 49, TIBC 461, percent iron saturation 11, ferritin 11.5. Bilirubi n 0.4, AST 20, ALT 26, alk phos 98. Troponin 0.02. CRP less than 1. Albumin 4.3. B12 of 236. EKG: The patient is in normal rhythm without any acute ST-T wave abnormalities. CTA chest: There is a small volume pulmonary emboli of the left upper lobe. There is no right heart strain. There is ascending aortic ectasia without aneurysm. There is no aortic dissection. There i s lytic metastatic disease versus multiple myeloma with associated T2 vertebral plana. There is a Rod sniak type 1 renal cyst. CTA head: There is mildly atherosclerotic and minimally stenotic right internal carotid stenosis, ot herwise normal head CT. Lumbar spine MRI: Tumor infiltration with pathologic compression fracture of L4. Tumor extends to e left 4 pedicle. There is severe stenosis of the spinal canal due to retropulsion of the fracture f ragment and direct tumor extension with bumping of the cauda equina. There is stenosis of the bilate ral L4-L5 neural foramina. There is a metastatic lesion along the right aspect of the L5 vertebra ex tending to the right pedicle. There is metastatic lesion involving the left aspect of S1 vertebral b alessandro. Thoracic spine MRI: There is pathologic compression fracture of T2 with severe stenosis of the spina l canal and cord compression due to combination of retropulsion of the fracture fragment and direct t umor extension. Severe stenosis of the bilateral neural foramina at T1-2 and T2-3. ASSESSMENT AND PLAN: Mr. Luis Lancaster is a 69-year-old generally healthy male, who presents to e emergency room with ultimately months of low back/leg complaints, however, acutely severe pain acro ss the upper back as well as paresthesias of the bilateral lower extremities and band-like area acros s the lower abdomen with associated off balance sensation and an inability to feel the ground and nitin clonic jerking of the legs, who is found to have probable pathologic compression fracture of T2 with severe spinal canal stenosis. 1. Probable pathologic fracture of T2 with spinal canal stenosis. MRIs were ordered urgently given the patient's neurologic findings and complaints. Dr. Steiner reviewed these over the phone with Nurse Practitioner, Lm. He recommended getting neurosurgery evaluation. Dr. Morejon was contact ed and will be seeing the patient; however, given the pulmonary embolism that were also identified on CTA of the chest, feels that he is too high risk to operate [place] [facility] recommends transfer. 2. Left upper pulmonary embolism. The patient describes being "laid up for the last 4 months." He likely developed deep venous thrombosis due to that. CT of the chest reveals a small volume of pulmo nary embolism in the left upper lobe. The patient will need to be treated for this; however, as the patient likely needs urgent to emergent surgical decompression of his thoracic spine, I am going to h old off on the Lovenox. He may benefit from being started on heparin drip. I will discuss with the receiving hospital whether or not they want him to be placed on anticoagulation in the meantime. 3. Hypertension. The patient's blood pressure has been [id number] elevated, however, th is has been attributed to pain. His blood pressure has trended down over his stay in the emergency r oom. This will need to be followed and treated as needed. 4. Anemia. The patient is mildly anemic with a hemoglobin of 13.3. His INR studies reveal iron def iciency anemia. He also has a very low B12 at 236. The patient will ultimately need a workup for th e probable metastatic disease seen on spine imaging. I question if a malignant process is leading to his anemia. 5. DVT prophylaxis. The patient has an acute pulmonary embolism at this time that he will ultimatel y need to be treated for. 6. Code status is full. TIME SPENT: Sixty-five minutes was spent admitting this patient. [id number]/[facility] #: [id number]
--- NOTE | 2019-11-22 10:21 | CONSULT ---
Consult Consult: Neurology Inpatient Consult Note Date of Service: 11/22/2019 Reason for consult: Neurology was consulted by Aston Amato to evaluate the patient for possible GBS. The history was obtained by the patient. Chief complaint: Bilateral leg weakness History of Present Illness: Mr. 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 The patient typically has mild low back pain over the years. Over the past four months, the pain has increase in frequency and intensity. The pain would radiate down the legs and is exacerbated with activity. He was still capable of walking 1-2 miles a day, until recently. Approximately around the end of October, the patient was noticing weakness and fatigue of the lower extremity. He also noticed a new radiating pain across his chest. He went to his chiropractor for adjustment last week and that seem to have worsened his symptoms. He now has weakness in the legs and trouble walking few steps without assistance. He denied any urinary incontinence or retention, but had a urinary catheter placed today for suspected urinary retention. He has loss of sensation at the chest down to his legs. Currently, he denied any pain. With valsalva, he has shooting pain across the chest wall. He is feeling short of breath when laying flat. He has mild chest discomfort. He denied any recent illness or tick bites. He has no symptoms in the upper extremities. He denied any swallowing difficulty or slurred speech. Labs, Imaging and Other Diagnostics: ESR: 52 D-Dimer: 497 - MRI thoracic spine with/without contrast 11/22/2019: T2 severe stenosis of the spinal canal and cord compression due to combination of retropulsion of the fracture fragment and direct tumor extension. Severe stenosis of the bilateral neural foramina at T1-2 and T2-3. - MRI lumbar spine with/without contrast 11/22/2019: Tumor infiltration with pathologic compression fracture of L4. Tumor extends to the left L4 pedicle. There is severe stenosis of the spinal canal due to retropulsion of the fracture fragment and direct tumor extension with dumping of the cauda equina. Stenosis of the bilateral L4-5 neural foramina. Past Medical History: Hypertension. Recent history of low back pain with radiculopathy. Family History: No family history of stroke or seizures. Social History: He consumes 1-2 beers a day. He denied tobacco use. He is . Medications: Acetaminophen TAB* [Tylenol TAB*] 650 mg PO Q4H PRN 09/07/19 [History Confirmed 11/21/19] Ibuprofen TAB* [Motrin TAB* 600 MG] 600 mg PO Q8H PRN #20 tab 09/07/19 [Rx Confirmed 11/21/19] Gabapentin 300 mg PO TID PRN 11/21/19 [History Confirmed 11/21/19] Methylprednisolone 4 mg PO DAILY 11/21/19 [History Confirmed 11/21/19] traMADol TAB* 50 mg PO Q6HR PRN 11/21/19 [History Confirmed 11/21/19] Allergies No Known Allergies Allergy (Verified 11/21/19 20:33) Review of Systems: A 14-point ROS was obtained and otherwise negative except for what was mentioned in the HPI. Physical Exam: Vitals: Vital Signs - 12 hr Pulse Resp BP Pulse Ox 11/22/19 09:35 16 133/97 11/22/19 09:05 18 156/130 11/22/19 09:00 14 11/22/19 08:35 21 165/93 11/22/19 08:05 29 157/83 11/22/19 08:00 26 11/22/19 07:35 104 23 166/94 95 11/22/19 07:05 104 17 145/99 96 11/22/19 07:04 108 33 159/107 96 11/22/19 07:00 107 22 96 11/22/19 06:04 96 20 162/105 93 11/22/19 06:00 89 13 93 11/22/19 05:52 97 132/90 84 11/22/19 04:04 19 150/107 11/22/19 04:00 97 21 94 11/22/19 03:34 22 152/114 11/22/19 03:17 87 94 11/22/19 03:04 161/104 11/22/19 02:35 170/103 11/22/19 02:06 90 95 11/22/19 02:04 90 153/101 92 11/22/19 01:55 176/110 11/22/19 01:48 92 168/120 95 11/22/19 01:05 18 187/114 11/22/19 01:00 89 17 94 11/22/19 00:34 96 20 184/111 94 11/22/19 00:06 86 19 90 11/22/19 00:05 84 14 191/119 90 11/21/19 23:34 87 18 182/97 94 11/21/19 23:32 88 17 93 11/21/19 23:28 87 188/116 94 11/21/19 22:35 76 202/110 94 11/21/19 22:34 75 93 General: well nourished, well developed. Alert, cooperative, no apparent distress, appears stated age. Head: normocephalic, without obvious abnormality Eyes: conjunctivae/corneas clear Neck: supple, symmetrical. No carotid bruit. No lymphadenopathy. Lungs: clear to auscultation bilaterally, non-labored CV: regular rhythm, S1, S2 normal, radial pulses palpable Extremities: normal range of motion with no cyanosis. Skin: no skin lesions or lacerations Psych: affect-broad and normal mood. Easy to establish rapport. Neurological examination: Mental status: awake; alert and oriented to person, place, time, & general circumstances; speech & language including expression, naming, repetition, & comprehension was assessed and found to be normal. Cranial nerves: I: not tested II, III, IV, : normal confrontation B/L, Pupils midrange and reactive to light , normal consensual response; extraocular muscles are intact; no ptosis; no conjugate or asymmetrical nystagmus V 1/2/3: sensation is intact on forehead, cheeks, and jaw region VII: no facial droop; facial symmetry while smiling & wrinkling of forehead; tight lid closure VIII: able to hear throughout the history process IX & X: symmetric palatal elevation XI: normal strength against resistance XII: tongue is symmetrical & midline with no atrophy or fasciculations Motor (R/L): no abnormal movements, no pronator drift. Increase tone in the lower extremities. No fasciculations. Neck extension 5. Shoulder ROM is full. Shoulder abduction 5/5. Elbow flexion 5/5, extension 5/5. Wrist flexion 5/5, extension 5/5. Finger flexion 5/5, extension 5/5, abduction 5/5. Hip flexion 3/3, abduction 4/4. Knee flexion 4/4, extension 5/5. Ankle dorsiflexion 5-/5-, plantarflexion 5-/5-. Great toe extension 3/3 Reflexes R L Brachioradialis 1 1 Biceps 1 1 Triceps 1 1 Patella 0 0 Ankle 0 0 Plantar mute mute Sensation is intact to light touch throughout. Normal vibration and proprioception at the great toes. Coordination: absent sensation to light-touch and pinprick at Gait & Station: n/a Assessment: Mr. Luis Lancaster is a 69-year-old man who presents with a one week history of bilateral lower extremity weakness associated with hypoanesthesia. The patient's neurological examination is notable for mild-moderate paraparesis , sensory level to pinprick at T2-3, areflexia in the lower extremities, and complete loss of sensation to vibration and pinprick in the distal lower extremities. MRI of the T and L spine show pathologic compression fracture of T2 with severe stenosis of the spinal canal and cord compression due to combination of retropulsion of the fracture fragment and direct tumor extension. There is also tumor infiltration with pathologic compression fracture of L4, causing direct tumor extension and clumping of the cauda equina. 1. Neoplastic multilevel spinal cord compression. Cord compression the first sign of malignancy in 20% of cases. Most common cancers to metastasize to the spinal column leading to epidural compression include: lung, prostate, myeloma, renal cell, and lymphoma. The patient has been uptodate with The patient does not have any pain today, but has radicular pain around the the upper thoracic spine with valsalva. The lack of myelopathy is related to either spinal shock or secondary to The patient does not have evidence of GBS since there is a known localized lesion for the paraparesis. 2. Pulmonary embolus most likely related to hypercoagulable state of malignancy. 3. Low normal vitamin B12. Recommendations: - Defer metastatic work-up to the primary team. - Steroid treatment has been initiated. He does not have dense paraparesis, thus high dose dexamethasone (100 mg load) is not indicated. Moderate dose has been started. Continue Deamethasone 4 mg every 6 hours. - The patient needs urgent neurosurgical evaluation and treatment. He may require radiation therapy after decompression/reconstruction/stabilization surgery. - Consult oncology - Send an SPEP and immunofixation. - Neuro checks every one hour - Check a methylmalonic acid - If the patient is going to be here for longer than 6 hours, he has no clear contraindications for anticoagulation therapy with heparin gtt. However, if he is scheduled to have surgery today, then there is no need to morales and place him on anticoagulation. Defer further recommendations to neurosurgery. Neurology will sign off. Please contact me for any questions. Discussed the above recommendations with Aston Amato and Dr. Olguin. Varun Steiner MD Date: 11/22/2019 Time: 09:15
[2019-11-22 10:37] VITALS: BP 147/81
[2019-11-22] MEDS ORDERED: Ropinirole TAB* 0.5 MG TAB PO SCH (21:00)
--- NOTE | 2019-11-23 02:45 | CONS ---
CONSULTATION NOTE: DATE OF CONSULT: 11/21/19 - EMERGENCY DEPT HISTORY OF PRESENT ILLNESS: The patient is a very pleasant 69-year-old right handed gentleman who was having 4 months' history of intermittent pain, radiating down the lower extremities and a history of approximately 1 week of lower extremity weakness. The patient reports that he has chronic back pain, but over the last 4 months the pain has increased in intensity. The patient reports that he had several treatment options including chiropractic manipulations after he started noticing weakness and fatigue of the lower extremities with pain radiating to the anterior part of his chest. The patient reports that after the chiropractic manipulation, his symptoms worsened. The patient has significant difficulty with walking. He was not able to walk more than a few steps without assistance with weakness in both lower extremities. The patient denies any urinary or GI incontinence, although the patient had placement of a Gould catheter and there was a suspicion for urinary retention. The patient reports that he does have decreased sensation below his chest and below his ankles. The patient has still back pain especially when he is sitting up or he is standing or he is trying to stand. The patient was in the emergency room at the request of neurology service because of MRI findings consistent with pathologic fracture of T2 and lytic lesion at T3 with epidural metastasis and also pathologic fracture with epidural metastasis at L4 with L5 and S1 possible metastasis. PAST MEDICAL HISTORY: Hypertension. MEDICATIONS: The patient is on: 1. Acetaminophen. 2. Ibuprofen. 3. Gabapentin. 4. Methylprednisolone. 5. Tramadol. ALLERGIES: The patient has no known drug allergies. FAMILY HISTORY: Noncontributory. SOCIAL HISTORY: Tobacco negative. Alcohol: Positive for 1 to 2 beers a day. Recreational drug use negative. 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 PHYSICAL EXAM: The patient is in no acute distress. He is awake, alert, oriented x3. His pupils are equal and reactive. Cranial nerves II through XII are grossly intact. Motor: 4 to 5 out of 5 in the upper extremities. No pronator drift. Lower extremities: 3/5 in hip flexion and knee extension; 3 to 4 out of 5 in ankle dorsiflexion, EHL, and plantarflexion. Sensory grossly intact to light touch except decreased sensation below T3 level with a second sensory level at approximately L4 below his ankles. Deep tendon reflexes +1 bilaterally in the upper extremities, lower extremities absent. The patient has no clonus. No Babinski. Ned's negative. The patient has no tenderness to palpation in the cervical, thoracic, or lumbar spine. Has free range of motion of the cervical spine. DIAGNOSTIC STUDIES/LAB DATA: The patient had a CTA of his head and neck that revealed a T2 pathological fracture with right L3 lytic lesion. CT of the chest revealed pulmonary embolism with T2 lytic lesion with possible pathological fracture with posterior extension of epidural lesion with right T3 lytic lesion. There is also a T6 possible lytic lesion. The patient had also an MRI of his thoracic spine that reveled a pathological fracture at T2 with epidural metastasis, left paraspinal enhancing lesion and cord compression. There is a also a right T3 lesion and T6 possible lesion. The patient had an MRI of the lumbar spine that reveals again a L4 possible pathological fracture with retropulsion and epidural lesion, possible metastasis causing severe canal compromise. There is also possible metastatic lesions at L5 and S1. ASSESSMENT: The patient is a very pleasant 69-year-old gentleman with T2 and L4 possible pathological fractures with epidural possible metastasis with severe myelopathy. PLAN/RECOMMENDATIONS: The patient at this point has signs of significant myelopathy that correlate with his imaging. I think that the patient may benefit from a surgical intervention. Discussed the patient's options with the patient. The patient will be agreeable with the surgical intervention. Discussed about possibility of transfer to another tertiary center because of the presence of pulmonary embolism and the need for significant supportive measures and possible long-term therapy with possible need for radiation. The patient understands and he would also like to be transferred to a tertiary center. Dr. Qureshi contacted the neurosurgeon animal nutrition consultant in [facility] but the transfer was not possible. After discussion with Dr. Ulloa in the [facility], the patient will be scheduled for transfer. The plan was discussed with Dr. Olguin. The patient understands the severity of his condition and the possible poor prognosis. Thank you for allowing us to participate in the care of this patient. Please do not hesitate to contact our office in case you have any further questions or concerns regarding the care of this patient. [id number]/[facility] #: [id number] MTDD
== END 2019-11-22 10:54 | disposition short-term general hospital (02) ==
LOC: ED 20:29 → MEDTELE 11-22 02:07 → UNDOADMOB 11-22 02:07 → ED 11-22 10:54
DX: I26.99 Other pulmonary embolism without acute cor pulmonale (principal); M84.48XA Pathological fracture, other site, initial encounter for fracture; C79.51 Secondary malignant neoplasm of bone; I65.23 Occlusion and stenosis of bilateral carotid arteries; M54.42 Lumbago with sciatica, left side; R33.9 Retention of urine, unspecified; D64.9 Anemia, unspecified; N28.1 Cyst of kidney, acquired; M62.81 Muscle weakness (generalized); R20.0 Anesthesia of skin; I10 Essential (primary) hypertension; Z87.891 Personal history of nicotine dependence
CPT/HCPCS: 36415; 70496; 70498; 71275; 72157; 72158; 80053; 82607; 82728; 83540; 83550; 83605; 84484; 85025; 85379; 85652; 86140; 93005; 96374; 99285; A9270-GY; A9579; J1100; Q9967

== ENCOUNTER 2021-07-29 09:18 | Observation (INO) ==
[~2021-07-29 09:18] MED LIST: Buffered Lidocaine 1% SYRIN 1 ml INTRADERM ONE; Lactated Ringers 1000 ml BAG 1,000 ML IV SCH
[2021-07-29] MEDS ORDERED: cefTRIAXone 2 GM ADDV.VIAL ONE (09:35)
[2021-07-29] MEDS ORDERED: Propofol 10 MG/ML 20 ML BTL ONE (10:36)
[2021-07-29] MEDS ORDERED: Iohexol 180 (CONTRAST) 10 ML SDV IV ONE (10:37)
[2021-07-29] MEDS ORDERED: Dexamethasone IV 4 MG/ML VIAL 1 ml VIAL ONE (10:57)
[2021-07-29] MEDS ORDERED: Ondansetron 4 mg VIAL 2 MG/ML 2 ml VIAL ONE (10:57)
[2021-07-29] MEDS ORDERED: fentaNYL 100 mcg/2 ml 50 MCG/ML VIAL ONE ×4 (10:58→13:45)
[2021-07-29] MEDS ORDERED: Midazolam 5 mg/5 ml VIAL 1 mg/ml 5 ml VIAL (5 mg) ONE (10:58)
[2021-07-29] MEDS ORDERED: Rocuronium 50 mg VIAL 10 mg/ml 5 ml VIAL (50 mg) ONE ×2 (10:58→11:35)
[2021-07-29] MEDS ORDERED: Ketamine HCL 50 mg/ml 10 ml VIAL (500 MG) ONE (10:58)
[2021-07-29] MEDS ORDERED: Sugammadex 500 MG/5 ML 5 ml VIAL IV PUSH ONE (12:19)
[2021-07-29] MEDS ORDERED: Ondansetron 4 mg VIAL 2 MG/ML 2 ml VIAL IV PRN (12:49)
[2021-07-29] MEDS ORDERED: Naloxone 0.4 mg VIAL 0.4 mg/ml 1 ml VIAL IV PRN (12:49)
[2021-07-29] MEDS: fentaNYL 100 mcg/2 ml 50 MCG/ML VIAL IV PRN ×4 (12:55→13:56)
[2021-07-29] MEDS: NS 0.9% 1000 ml BAG 1,000 ML IV SCH ×2 (15:00→21:59)
[2021-07-29] MEDS ORDERED: Lidocaine 2% JELLY 6 ML TOPICAL PRN (15:15)
[2021-07-29] MEDS: CMCS:OMEGA-3 FATTY ACID 1000 mg(NF) PO SCH (20:41)
[2021-07-30] MEDS: oxyCODONE/Acetamin 5/325 mg TAB PO PRN ×2 (00:27→05:19)
[2021-07-30] MEDS: NS 0.9% 1000 ml BAG 1,000 ML IV SCH (04:46)
[2021-07-30 08:00] VITALS: BP 138/70
[2021-07-30] MEDS ORDERED: NF:Lenalidomide 10 mg CAP (NF) PO SCH (09:00)
[2021-07-30] MEDS ORDERED: Multivitamins/Minerals TAB PO SCH (09:00)
[2021-07-30] MEDS ORDERED: Cholecalciferol (VIT D3) 1,000 unit TAB PO SCH (09:00)
[2021-07-30] MEDS: CMCS:OMEGA-3 FATTY ACID 1000 mg(NF) PO SCH (09:05)
== END 2021-07-30 11:55 | disposition home or self-care (01) ==
LOC: SSU 09:18 → OR 09:18
PROVIDERS: ADMIT Urology; ATTEND Urology

== ENCOUNTER 2024-03-02 10:31 | Inpatient (IN) ==
[2024-03-02] MEDS: NORMOSOL R PH IV ONE (12:30)
[2024-03-02] MEDS: Acetaminophen IV 1 GM/100ML 1,000 MG/100 ML BAG IV ONE (12:30)
[2024-03-02 12:38] LABS: Urine Appearance Turbid; Urine Bilirubin Negative (Negative); Urine Blood 3+ (Negative); Urine Glucose Trace (Negative); Urine Ketones Negative (Negative); Urine Nitrite Negative (Negative); Urine Protein 3+ (>=300 mg/dL) (Negative); Urine Specific Gravity 1.029 (1.002-1.030); Urine Urobilinogen Negative (Negative)
[2024-03-02 12:39] LABS: Hematocrit 27.4 % (38-53); Hemoglobin 9.4 g/dL (13.2-16.3); Mean Corpuscular Hemoglobin 31.4 pg (27-33); Mean Corpuscular Hgb Conc 34.4 g/dL (31-36); Mean Corpuscular Volume 91.3 fL (80-97); Mean Platelet Volume 9.5 fL (7.5-11.2); Platelet Count 64 10^3/uL (150-450); Red Cell Distribution Width 15.1 % (12-17); White Blood Count 4.6 10^3/uL (3.6-10.2)
[2024-03-02 12:50] LABS: Activated Partial Thrombo Time 29.2 seconds (26.0-38.0); INR 1.32 (0.83-1.13)
[2024-03-02] MEDS: DOXYcycline 100 MG in NS 0.9% 250 ml 250 ML IVPB ONE (12:52)
[2024-03-02 12:55] LABS: Urine Amorphous Crystals Present /HPF (Absent); Urine Bacteria 1+ /HPF (Absent); Urine Granular Casts Present /LPF (Absent); Urine Red Blood Cell 2+(6-10/hpf) /HPF (0-Trace); Urine White Blood Cell 2+(11-20/hpf) /HPF (0-Trace)
[2024-03-02 13:11] LABS: C Reactive Protein 190.64 mg/L (<8.01); Calcium 9.2 mg/dL (8.6-10.3); Creatinine, Serum 1.14 mg/dL (0.67-1.17); Direct Bilirubin 0.5 mg/dL (0.03-0.18); Indirect Bilirubin 1.6 mg/dL (0.3-1.0); Magnesium 1.7 mg/dL (1.9-2.7); Potassium 3.1 mmol/L (3.5-5.0); Total Bilirubin 2.1 mg/dL (0.2-1.0); eGFR CKD-EPI 67.5 (>60)
[2024-03-02 13:32] LABS: Urine Color Light-Orange
[2024-03-02 13:59] LABS: ABS Lymphocytes 0.6 10^3/uL (1.0-4.8); ABS Monocytes 0.5 10^3/uL (0.0-1.1); ABS Neutrophils 3.5 10^3/uL (1.5-7.6); Lymphocyte % 13.6 %
[2024-03-02 14:01] LABS: RBC Morphology Normal (Normal)
[2024-03-02 14:14] LABS: High Sensitivity Troponin 1 Hr 44 pg/mL (<20)
[2024-03-02] MEDS: Magnesium Sulfate 2 gm BAG 2 GM/50 ML BAG IVPB ONE (14:46)
[2024-03-02] MEDS: KCL 20 MEQ/100 ML IVPREMIX 20 MEQ/100 ML BAG IV SCH (14:46)
[2024-03-02] MEDS: Lactated Ringers 1000 ml BAG 1,000 ML IV SCH (18:41)
[2024-03-02 19:08] LABS: TSH Ultra Thyroid Stim Horm 28.66 mcIU/mL (0.34-5.60)
[2024-03-02 19:10] LABS: Free T4 0.46 ng/dL (0.61-1.12)
[2024-03-02 19:14] LABS: RBC Parasite Smear POSITIVE (No Parasite)
[2024-03-03 06:37] LABS: ABS Lymphocytes 0.5 10^3/uL (1.0-4.8); ABS Monocytes 0.5 10^3/uL (0.0-1.1); ABS Neutrophils 3.4 10^3/uL (1.5-7.6); ABS Nucleated RBC 0.01 10^3/ul; Eosinophil % 0.1 %; Hemoglobin 8.8 g/dL (13.2-16.3); Lymphocyte % 10.9 %; Mean Corpuscular Hemoglobin 31.7 pg (27-33); Mean Corpuscular Hgb Conc 35.1 g/dL (31-36); Mean Corpuscular Volume 90.4 fL (80-97); Mean Platelet Volume 10.1 fL (7.5-11.2); Nucleated Red Blood Cells % 0.1 %/100WBC (0.0-0.8); Platelet Count 61 10^3/uL (150-450); Red Blood Count 2.76 10^6/uL (4.06-5.63); Red Cell Distribution Width 15.6 % (12-17); White Blood Count 4.4 10^3/uL (3.6-10.2)
[2024-03-03 10:15] LABS: Albumin 3.6 g/dL (3.2-5.2); Albumin/Globulin Ratio 1.9 (1-3); Calcium 8.4 mg/dL (8.6-10.3); Creatinine, Serum 0.87 mg/dL (0.67-1.17); Globulin 1.9 g/dL (2-4); Potassium 3.2 mmol/L (3.5-5.0); Total Bilirubin 1.8 mg/dL (0.2-1.0); Total Protein 5.5 g/dL (6.4-8.9); eGFR CKD-EPI 90.5 (>60)
[2024-03-03] MEDS: Potassium Chlor 20 meq TAB.ER PO ONE ×2 (10:53→15:03)
[2024-03-03] MEDS: Azithromycin 500 mg/250 ml NS 500 MG/250 ML BAG IVPB SCH (11:01)
[2024-03-04 06:40] LABS: ABS Lymphocytes 0.7 10^3/uL (1.0-4.8); ABS Monocytes 0.2 10^3/uL (0.0-1.1); ABS Neutrophils 2.2 10^3/uL (1.5-7.6); Hematocrit 23.8 % (38-53); Hemoglobin 8.3 g/dL (13.2-16.3); Mean Corpuscular Hemoglobin 31.6 pg (27-33); Mean Corpuscular Hgb Conc 34.9 g/dL (31-36); Mean Corpuscular Volume 90.5 fL (80-97); Mean Platelet Volume 9.5 fL (7.5-11.2); Platelet Count 62 10^3/uL (150-450); Red Blood Count 2.63 10^6/uL (4.06-5.63); Red Cell Distribution Width 15.9 % (12-17); White Blood Count 3.2 10^3/uL (3.6-10.2)
[2024-03-04 06:41] LABS: Eosinophil % 0.2 %; Lymphocyte % 21.9 %
[2024-03-04 07:08] LABS: Calcium 8.1 mg/dL (8.6-10.3); Creatinine, Serum 0.75 mg/dL (0.67-1.17); eGFR CKD-EPI 94.7 (>60)
[2024-03-04 17:54] LABS: ABS Lymphocytes 0.6 10^3/uL (1.0-4.8); ABS Monocytes 0.4 10^3/uL (0.0-1.1); ABS Neutrophils 2.4 10^3/uL (1.5-7.6); Eosinophil % 0.6 %; Hematocrit 23.8 % (38-53); Hemoglobin 8.2 g/dL (13.2-16.3); Lymphocyte % 18.7 %; Mean Corpuscular Hemoglobin 31.3 pg (27-33); Mean Corpuscular Hgb Conc 34.4 g/dL (31-36); Mean Platelet Volume 9.5 fL (7.5-11.2); Nucleated Red Blood Cells % 0.1 %/100WBC (0.0-0.8); Platelet Count 65 10^3/uL (150-450); Red Blood Count 2.62 10^6/uL (4.06-5.63); Red Cell Distribution Width 16.2 % (12-17); White Blood Count 3.4 10^3/uL (3.6-10.2)
[2024-03-04 18:18] LABS: Activated Partial Thrombo Time 29.5 seconds (26.0-38.0); INR 1.2 (0.83-1.13)
[2024-03-05 07:28] LABS: Calcium 8.1 mg/dL (8.6-10.3); Creatinine, Serum 0.73 mg/dL (0.67-1.17); Magnesium 1.9 mg/dL (1.9-2.7); Potassium 3.7 mmol/L (3.5-5.0); eGFR CKD-EPI 95.5 (>60)
[2024-03-05 07:34] LABS: ABS Lymphocytes 0.6 10^3/uL (1.0-4.8); ABS Monocytes 0.3 10^3/uL (0.0-1.1); ABS Neutrophils 2.3 10^3/uL (1.5-7.6); ABS Nucleated RBC 0.01 10^3/ul; Eosinophil % 1.5 %; Hematocrit 22.6 % (38-53); Hemoglobin 7.9 g/dL (13.2-16.3); Lymphocyte % 18.1 %; Mean Corpuscular Hemoglobin 31.5 pg (27-33); Mean Corpuscular Hgb Conc 35.2 g/dL (31-36); Mean Corpuscular Volume 89.6 fL (80-97); Mean Platelet Volume 9.3 fL (7.5-11.2); Nucleated Red Blood Cells % 0.2 %/100WBC (0.0-0.8); Platelet Count 65 10^3/uL (150-450); Red Blood Count 2.52 10^6/uL (4.06-5.63); Red Cell Distribution Width 15.9 % (12-17); White Blood Count 3.2 10^3/uL (3.6-10.2)
[2024-03-05 10:42] LABS: Albumin 3.1 g/dL (3.2-5.2); Albumin/Globulin Ratio 1.4 (1-3); Direct Bilirubin 0.5 mg/dL (0.03-0.18); Globulin 2.2 g/dL (2-4); Indirect Bilirubin 1.4 mg/dL (0.3-1.0); Total Bilirubin 1.9 mg/dL (0.2-1.0); Total Protein 5.3 g/dL (6.4-8.9)
[2024-03-05] MEDS: Polyethylene Glycol 3350 17 GM PACKET PO ONE (11:01)
[2024-03-05 11:41] LABS: RBC Parasite Smear POSITIVE (No Parasite)
[2024-03-05] MEDS: Lactated Ringers 1000 ml BAG 1,000 ML IV ONE (15:24)
[2024-03-06 08:10] LABS: ABS Eosinophils 0.1 10^3/uL (0.0-0.5); ABS Lymphocytes 0.7 10^3/uL (1.0-4.8); ABS Monocytes 0.3 10^3/uL (0.0-1.1); ABS Neutrophils 2.1 10^3/uL (1.5-7.6); ABS Nucleated RBC 0.01 10^3/ul; Eosinophil % 4.5 %; Hematocrit 21.6 % (38-53); Hemoglobin 7.5 g/dL (13.2-16.3); Lymphocyte % 20.8 %; Mean Corpuscular Hemoglobin 31.2 pg (27-33); Mean Corpuscular Hgb Conc 34.6 g/dL (31-36); Mean Corpuscular Volume 90.2 fL (80-97); Nucleated Red Blood Cells % 0.2 %/100WBC (0.0-0.8); Platelet Count 68 10^3/uL (150-450); Red Cell Distribution Width 16.1 % (12-17); White Blood Count 3.3 10^3/uL (3.6-10.2)
[2024-03-06 08:13] LABS: Albumin/Globulin Ratio 1.4 (1-3); Calcium 7.8 mg/dL (8.6-10.3); Creatinine, Serum 0.74 mg/dL (0.67-1.17); Globulin 2.1 g/dL (2-4); Potassium 3.8 mmol/L (3.5-5.0); Total Bilirubin 1.9 mg/dL (0.2-1.0); Total Protein 5.1 g/dL (6.4-8.9); eGFR CKD-EPI 95.1 (>60)
[2024-03-06] MEDS ORDERED: Senna TAB 8.6 mg TAB PO PRN (12:17)
[2024-03-06] MEDS ORDERED: Polyethylene Glycol 3350 17 GM PACKET PO PRN (12:17)
[2024-03-06] MEDS ORDERED: Magnesium Hydroxide LIQ 30 ML UDC PO PRN (12:17)
[2024-03-06] MEDS: Magnesium Hydroxide LIQ 30 ML UDC PO SCH (20:40)
[2024-03-07 06:47] LABS: ABS Eosinophils 0.2 10^3/uL (0.0-0.5); ABS Lymphocytes 0.9 10^3/uL (1.0-4.8); ABS Monocytes 0.3 10^3/uL (0.0-1.1); ABS Neutrophils 1.9 10^3/uL (1.5-7.6); ABS Nucleated RBC 0.01 10^3/ul; Eosinophil % 4.8 %; Hematocrit 21.3 % (38-53); Hemoglobin 7.5 g/dL (13.2-16.3); Lymphocyte % 28.1 %; Mean Corpuscular Hemoglobin 31.3 pg (27-33); Mean Corpuscular Volume 89.4 fL (80-97); Mean Platelet Volume 8.9 fL (7.5-11.2); Nucleated Red Blood Cells % 0.4 %/100WBC (0.0-0.8); Platelet Count 88 10^3/uL (150-450); Red Blood Count 2.39 10^6/uL (4.06-5.63); Red Cell Distribution Width 16.1 % (12-17); White Blood Count 3.3 10^3/uL (3.6-10.2)
[2024-03-07 06:50] LABS: Calcium 7.8 mg/dL (8.6-10.3); Creatinine, Serum 0.77 mg/dL (0.67-1.17); Magnesium 2.1 mg/dL (1.9-2.7); Potassium 3.8 mmol/L (3.5-5.0); eGFR CKD-EPI 93.9 (>60)
[2024-03-07] MEDS: KCL 20 MEQ/100 ML IVPREMIX 20 MEQ/100 ML BAG IV ONE (08:26)
[2024-03-08 06:03] LABS: Hematocrit 22.8 % (38-53); Hemoglobin 7.8 g/dL (13.2-16.3); Mean Corpuscular Hemoglobin 31.1 pg (27-33); Mean Corpuscular Volume 91.5 fL (80-97); Platelet Count 126 10^3/uL (150-450); Red Cell Distribution Width 16.2 % (12-17); White Blood Count 4.1 10^3/uL (3.6-10.2)
[2024-03-08 06:30] LABS: Albumin/Globulin Ratio 1.5 (1-3); Calcium 8.1 mg/dL (8.6-10.3); Creatinine, Serum 0.78 mg/dL (0.67-1.17); Magnesium 2.1 mg/dL (1.9-2.7); Potassium 4.3 mmol/L (3.5-5.0); Total Bilirubin 0.9 mg/dL (0.2-1.0); eGFR CKD-EPI 93.6 (>60)
[2024-03-08 06:58] LABS: ABS Eosinophils 0.2 10^3/uL (0.0-0.5); ABS Monocytes 0.4 10^3/uL (0.0-1.1); ABS Neutrophils 2.6 10^3/uL (1.5-7.6); ABS Nucleated RBC 0.03 10^3/ul; Eosinophil % 4.1 %; Lymphocyte % 23.8 %; Nucleated Red Blood Cells % 0.8 %/100WBC (0.0-0.8)
[2024-03-08 06:59] LABS: Polychromasia 1+
[2024-03-08] MEDS: AZITHROMYCIN 500 MG TAB PO SCH (07:53)
[2024-03-08 09:57] VITALS: BP 118/69
== END 2024-03-08 12:30 | disposition home or self-care (01) | DRG 865 ==
LOC: ED 10:31 → EDHOLD 10:31 → MED 17:49
PROVIDERS: ADMIT Internal Medicine; ATTEND Internal Medicine